=== PATIENT | male | born 1950 ===

== ENCOUNTER 2018-01-26 10:13 | Emergency (ER) | payer MEDICARE, MEDICAID ==
[2018-01-26 10:20] VITALS: BMI 22.9
[2018-01-26] MEDS ORDERED: Oxycodone/Acetaminophen 5/325 mg Tab PO STA (11:35)
--- NOTE | 2018-01-26 12:01 | C.PDOC ---
History Of Present Illness 67 year old male presents to the ED by ambulance after being sent by long term for evaluation of pain and rash to right chest wall which began 1 day ago. Patient denies any other symptoms as well as fever, chills, shortness of breath. Time Seen by Provider: 01/26/18 11:22 Chief Complaint (Nursing): Abnormal Skin Integrity History Per: Patient, EMS History/Exam Limitations: no limitations Onset/Duration Of Symptoms: Hrs, Waxing/Waning Location Of Injury: Right: Chest Quality Of Symptoms: Painful Additional History Per: Patient, EMS, Shelter Past Medical History Reviewed: Historical Data, Nursing Documentation, Vital Signs Vital Signs: Last Vital Signs Temp 98.5 F 01/26/18 10:35 Pulse 68 01/26/18 10:35 Resp 18 01/26/18 10:35 BP 167/57 H 01/26/18 10:35 Pulse Ox 97 01/26/18 12:19 - Medical History PMH: Anemia, Depression, Diabetes, Gall Bladder Disease, HTN, Hypercholesterolemia, Peripheral Edema, Chronic Kidney Disease ("CKD-NOT ON HEMODIALYSIS") Surgical History: Cholecystectomy - [facility] Procedures ANGIOPLASTY OF OTHER NON-CORONARY VESSEL(S) (11/05/13) CONTRAST AORTOGRAM (11/05/13) CONTRAST ARTERIOGRAM-LEG (11/05/13) DETACHMENT AT RIGHT LOWER LEG, LOW, OPEN APPROACH (10/20/16) DETACHMENT AT RIGHT LOWER LEG, MID, OPEN APPROACH (10/20/16) INSEJ [id number] PERIPHERAL NON-CORONARY VES STENT(S) (11/05/13) INSERTION OF INFUSION DEV INTO SUP VENA CAVA, PERC APPROACH (08/06/16) INSERTION OF ONE VASCULAR STENT (11/05/13) OCCUPATIONAL THERAPY (10/30/13) OTHER SPEECH THERAPY (10/30/13) PROCEDURE ON SINGLE VESSEL (11/05/13) TRANSFUSE NONAUT RED BLOOD CELLS IN PERIPH VEIN, PERC (10/20/16) Family History: States: Unknown Family Hx - Social History Hx Tobacco Use: Yes (former smoker) Hx Alcohol Use: No Hx Substance Use: No - Immunization History Hx Tetanus Toxoid Vaccination: No Hx Influenza Vaccination: No Review Of Systems Constitutional: Negative for: Fever, Chills Respiratory: Negative for: Shortness of Breath Skin: Positive for: Rash (right chest wall ) Physical Exam - Physical Exam Appears: Non-toxic, No Acute Distress Skin: Warm, Dry, Rash (erythematous, vessicular rash to right chest and right thoracic region (around T10 level) that is consistent with zoster. no cellulitic component ) Oral Mucosa: Moist Neck: Supple Chest: Symmetrical, No Deformity, No Tenderness Cardiovascular: Rhythm Regular, No Murmur Respiratory: Normal Breath Sounds, No Rales, No Rhonchi, No Wheezing Extremity: Normal ROM, Capillary Refill (less than 2 seconds ) Neurological/Psych: Oriented x3, Normal Speech, Normal Cognition ED Course And Treatment O2 Sat by Pulse Oximetry: 97 (on RA) Pulse Ox Interpretation: Normal Medical Decision Making Medical Decision Making: Assessment: herpes zoster Plan: * Percocet PO * Valtrex PO * reassess and disposition Progress: Percocet PO and Valtrex PO administered. On reassessment, patient is resting comfortably, showing no signs of distress and is stable for discharge to nursing facility. Disposition Counseled Patient/Family Regarding: Studies Performed, Diagnosis, Rx Given - Disposition Referrals: Hector Cifuentes MD [Staff Provider] - Disposition: TRANSF TO SNF Disposition Time: 11:58 Condition: STABLE Additional Instructions: follow up with your doctor in 2 days call to make an appointment take medications as prescribed return to hospital if symptoms worsens or progress Prescriptions: Acetaminophen/Hydrocodone Bi [Vicodin 300 mg-5 mg] 1 tab PO QID PRN #15 tab PRN Reason: Pain, Moderate (4-7) Valacyclovir HCl [Valtrex] 1 gm PO TID #21 tablet Instructions: Shingles (DC) Forms: [facility] (Liberian), General Discharge Instructions - Clinical Impression Clinical Impression: Herpes zoster - Scribe Statement The provider has reviewed the documentation as recorded by the Scribe (Padma Bryan) Provider Attestation: All medical record entries made by the Scribe were at my direction and personally dictated by me. I have reviewed the chart and agree that the record accurately reflects my personal performance of the history, physical exam, medical decision making, and the department course for this patient. I have also personally directed, reviewed, and agree with the discharge instructions and disposition.
[2018-01-26] MEDS ORDERED: Oxycodone/Acetaminophen 5/325 mg Tab ONE (12:02)
[2018-01-26 15:21] VITALS: BP 118/43; PULSE 83; RESP 17; TEMP 98; O2SAT 96
== END 2018-01-26 15:24 ==
LOC: C.ER 10:13
DX: B02.9 Zoster without complications (principal)